=== PATIENT | female | born 1975 | race Two or more races ===

== ENCOUNTER 2020-11-02 09:15 | Emergency (ER) | payer OTHER ==
[~2020-11-02] VITALS: Ht 154.9 cm; Wt 77.1 kg
[2020-11-02] MEDS ORDERED: VASOTEC20 M1 (09:33)
[2020-11-02] MEDS ORDERED: TOPROL XL50 M1 (09:33)
[2020-11-02] MEDS ORDERED: HYDROCHLOROTHIA25 MG (09:34)
[2020-11-02] MEDS ORDERED: VASOTEC2.5 MG (09:34)
[2020-11-02] MEDS ORDERED: CIPRO500 MG PO (19:26)
[2020-11-02] MEDS ORDERED: PEPCID AC20 MG PO (19:26)
[2020-11-02] MEDS ORDERED: DICY20TA PO (19:26)
== END 2020-11-02 20:11 | disposition home or self-care (01) ==
LOC: ER 09:15
DX: K52.89 Other specified noninfective gastroenteritis and colitis (principal); E86.0 Dehydration; Z03.818 Encounter for observation for suspected exposure to other biological agents ruled out; R19.7 Diarrhea, unspecified; R11.11 Vomiting without nausea

== ENCOUNTER → 2022-02-26 | Day surgery (SDC) | payer OTHER ==
[~2022-02-26] VITALS: Ht 154.9 cm; Wt 81.6 kg
[~2022-02-26] MED LIST: CIPRO500 MG PO; DICY20TA PO; HYDROCHLOROTHIA25 MG; NORVASC2.5 M1 PO; PEPCID AC20 MG PO; TOPROL XL50 M1; VASOTEC2.5 MG; VASOTEC20 M1
== END | disposition home or self-care (01) ==
LOC: ADM 02-23 07:30 → CIR.AMB 06:42
PROVIDERS: ATTEND Obstetrics & Gynecology
DX: N93.9 Abnormal uterine and vaginal bleeding, unspecified (principal); N84.0 Polyp of corpus uteri; N72 Inflammatory disease of cervix uteri; N87.9 Dysplasia of cervix uteri, unspecified; I10 Essential (primary) hypertension; E16.2 Hypoglycemia, unspecified; Z86.16 Personal history of COVID-19; Z88.2 Allergy status to sulfonamides; Z20.822 Contact with and (suspected) exposure to COVID-19